=== PATIENT | female | born 1930 | race Caucasian/White ===

== ENCOUNTER 2016-11-02 22:41 | Emergency (ER) | payer MEDICARE, OTHER ==
[~2016-11-02] VITALS: Ht 157.5 cm; Wt 68.0 kg
[~2016-11-02 22:41] MED LIST: AUGMENTIN 875-1 EACH PO; CIPRO 500MG TA500 MG PO; IMIPRAMINE HCL25 MG PO; LIBRIUM 10MG. C10 MG PO; MAXZIDE 50 MG-71 TAB PO; PREMARIN V0.625 MG/G VG
[2016-11-02] MEDS ORDERED: LISINOPRIL5 MG PO (22:46)
--- NOTE | 2016-11-02 23:50 | Emergency Room Report ---
History of Present Illness Time Seen by [id number] Presenting Problem in Triage Pt arrived:Wheelchair Presenting Problem:PT BROUGHT IN FOR CONSTIPATION. 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 N Clinical Suspician of Infection? N Mental Status: 1 - Regular (Normal Baseline) Sepsis Risk:Low Sepsis Risk Have you (or family members/close friends) recently traveled outside the [place]? N If Yes, where/when: Have you had exposure to infectious disease within the past month? N TB? Other? Specify: Source patient, RN notes reviewed, family, old records Exam Limitations no limitations Comment pt with hx of constipation and no vomiting - no chest pain or fever Cardiac Chest Pain Chest pain indicative of cardiac No Timing/Duration this evening Severity moderate ALLERGIES Coded Allergies: No Known Allergies (11/02/16) Home Medications Reported Medications Chlordiazepoxide Hcl (Librium 10MG. Capsule (Generic)) 10 MG PO BID #60 TRIAMTERENE/HYDROCHLOROTHIAZID (Triamterene-Hctz 75-50 MG Tab) 0.5 TAB PO DAILY Imipramine Hcl 25 MG PO QHS Lisinopril 5 MG PO DAILY #30 History Medical History General CAD? No Angina: No VT: No Hypertension? Yes Hyperlipidemia? Yes CHF? No DVT? No PE? No COPD? No Asthma? No Anemia? No GERD? No Gastric ulcers? No GI Bleed? No Hernia? Yes Thyroid Problems? No Hypothyroidism? No CVA? No Seizures? No Diabetes? No Insulin Dependent: No Insulin Pump: No Home FSBS? No Renal Insuffiency? No End Stage Renal Disease? No UTI? Yes Stones? No BPH? No GB Disease: No Nephritic Syndrome? No Asplenia? No Hepatitis? No Sickle Cell Disease? No Arthritis? Yes Migraines? No Cataracts? Yes Glaucoma? No MRSA? No HIV? No TB? No Anxiety? No Depression? No Cancer? No More? No Immunization Hx DT/Tetanus Unknown Flu Refused Pneumonia Refuses Surgical Hx Previous Surgery?Y D&C X 2 L HIP REPLACEMENT Family History Family Hx Diabetes No CAD No Hypertension No Hyperlipidemia No Cancer No TB No Social History Smoking Hx Smoker: Never Smoker Tobacco: No Type N/A Are you/the child exposed to second-hand smoke: No Alcohol Alcohol: No Drugs none Review of Systems All Other Systems Reviewed and Negative Constitutional denies fever Eyes denies drainage ENT denies: ear pain, epistaxis, throat pain. Respiratory denies cough, denies shortness of breath, denies wheezing Cardiovascular denies chest pain, denies palpitations, denies syncope Gastrointestinal see HPI, constipation, denies diarrhea, denies vomiting Genitourinary denies: dysuria, frequency, hesitancy, hematuria. Musculoskeletal denies back pain, denies joint pain, denies joint swelling, denies neck pain Skin denies rash Psychiatric/Neurological denies headache, denies seizure Physical Exam Vital Signs Vital Signs Date Time Temp Pulse Resp B/P Pulse O2 O2 Flow FiO2 Ox Delivery Rate 11/03 0102 92 18 135/70 97 11/03 0031 57 18 135/88 95 11/02 2350 98 18 138/79 98 11/02 2241 98.3 67 18 133/89 95 - WBC >12,000 or <4,000 or 10% bands? 2 or more SIRS Criteria Met? B/P:135/70 MAP:103 Creatinine >2.0? UA output<0.5ml/kg/hr for 2 hrs? Platelet count >100,000? Lactate >2.0mmol/1? INR >1.2 or PTT > than 60 sec? Evidence of Organ Dysfunction? Provider documented clinical suspician of infection? N Sepsis Criteria Count: 0 Sepsis Risk: Low Sepsis Risk General Appearance no apparent distress Eye Exam - bilateral eye PERRL, bilateral eye EOMI Ear, Nose, Throat normal ENT inspection Neck supple Respiratory Status No: respiratory distress. Lung Sounds bilateral: decreased breath sounds. Cardiovascular regular rate/rhythm, systolic murmur Peripheral Pulses Pulses normal Yes Gastrointestinal soft, no organomegaly, no pulsatile mass, no guarding, no rebound Extremities no calf tenderness, swelling Strength 3 Lower Ext (L), 3 Lower Ext (R), 4 Upper Ext (L), 4 Upper Ext (R) Neurologic alert, no focal changes Reflexes Reflexes normal No Mental status oriented to person Skin intact Medical Decision Making LABS/Meds/Orders Pt receiving controlled substance in ED? No Results/Orders Laboratory Tests 11/03/16 0019: Sodium 142, Potassium 4.2, Chloride 107, Carbon Dioxide 29, BUN 22 H, Creatinine 1.1 H, Estimated Creat Clear 40 L, Estimated GFR (MDRD) 47 L, Glucose 122 H, Calcium 8.9, Total Bilirubin 0.7, AST 16, ALT 16, Alkaline Phosphatase 99, Total Protein 7.0, Albumin 3.2 L, Globulin 3.8 H, Albumin/ Globulin Ratio 0.8 L, TSH 1.32, Thyroxine (T4) 7.7, WBC 7.9, RBC 4.28, Hgb 13.3 , Hct 39.3, MCV 91.9, RDW 13.5, Plt Count 209, MPV 8.9, Gran % 82.1 H, Gran # 6.5, Lymphocytes % 12.1, Monocytes % 4.8, Eosinophils % 0.5, Basophils % 0.5, Lymphocytes # 1.0, Monocytes # 0.4, Eosinophils # 0.0, Basophils # 0.0, PUBS MCHC 33.7, MCH 31.0 Orders Procedure Date/time Status DIET-NOTHING BY MOUTH 11/03 B Active THYROID STIMULATING HORMONE 11/02 235 Complete THYROXINE (T4) 11/02 235 Complete COMPLETE METABOLIC PANEL 11/02 235 Complete CBC WITH AUTO DIFF 11/[address] ABD & PELVIS W/O CONTRAST 11/[address] ABD/PELVIS REQ 11/02 2304 Complete XRAY/CT/US XRAY/CT/US CT abdomen, pelvis CT interpretation by discussed w/radiologist Time results known: 0113 CT Results abnormal (obstipation) Departure Departure Time of Disposition 0109 Disposition DC Home or Self Care(routine) Clinical Impression Primary Impression: Obstipation Secondary Impressions: Renal insufficiency Condition STABLE Referrals Marcial Veras (Family) Patient Instructions DI for Constipation Additional Instructions fluids and see pcp for follow up Discharge Counseling Counseled pt/family regarding diagnosis, test results, medications/RX, follow up needs Prescriptions Current Visit Scripts Polyethylene Glycol 3350 (Miralax) 17 GM PO DAILY #30 Ref 1 ED Critical Care Critical Care No at 0115
[2016-11-03 00:41] LABS: HEMOGLOBIN 13.3 g/dL (12.2-16.2); LYMPH % 12.1 % (10-50.0)
[2016-11-03] MEDS ORDERED: MIRALAX17 GM PO (01:15)
[2016-11-03 01:22] VITALS: BP 135/70
--- NOTE | 2016-11-03 08:10 | RADIOLOGY REPORT PS360 ---
CT ABD PELVIS W/O CONTRAST COMPARISON: CT scan abdomen pelvis 12/20/2014 HISTORY: Symptoms of constipation TECHNIQUE: Multiple axial scans obtained from the hemidiaphragms the pelvic floor and were performed without IV or oral contrast. Sagittal and coronal reformatted images were evaluated as well. FINDINGS: Scans through the lower chest show minimal bilateral basilar atelectasis, there is no pleural fluid. There is moderate generalized cardio megaly. The liver is normal size again showing small hypodense lesions in the right lobe likely hepatic cysts area stomach spleen and pancreas appear normal. The gallbladder somewhat small and shows a mildly thickened wall but there are no obvious gallstones. A couple of images are suggestive of a small amount of biliary sludge however and possibly follow-up ultrasound the right upper quadrant should be considered. The adrenal glands are normal. The kidneys are normal in size and again noted is a small benign-appearing cortical cyst midpole left kidney and a similar sized and appearing cortical cyst midpole right kidney. There are no calculi and is no obstructive uropathy of either kidney. There is a small umbilical hernia containing fat only. Small bowel appears normal, the appendix is normal caliber. There is large amount stool in the cecum and ascending colon. There is mild diffuse diverticulosis of the lower descending and sigmoid colon with is no evidence of diverticulitis. There is large amount stool in the rectum. The uterus is normal in size and in the midline. The urinary bladder is partially decompressed. Is no free fluid in pelvis. There is streak artifact crossing the lower pelvis from a hip prosthesis left side. There is generalized osteopenia of the lumbar spine with mild multilevel degenerative disc disease. IMPRESSION: 1. Mildly thickened gallbladder wall cannot exclude a small amount of biliary sludge. 2. Mild diffuse diverticulosis of the sigmoid colon without diverticulitis 3. Probable obstipation, I agree with the [facility] report
== END 2016-11-03 01:29 | disposition home or self-care (01) ==
LOC: ER 22:41
PROVIDERS: Emergency Medicine
DX: K59.00 Constipation, unspecified (principal); I10 Essential (primary) hypertension